=== PATIENT | female | born 1975 ===

== ENCOUNTER 2020-02-03 07:00 | Outpatient (RCR) | payer OTHER, SELFPAY ==
--- NOTE | 2020-02-02 13:42 | HO.PHPPROGNO ---
Subjective Subjective Date of Service: 02/02/20 Reason For Visit: F31.4 Interim History: Sravanthi is preparing for discharge this week. She has been trialing cyproheptadine for insomnia and it is helpful with nightmares, however she is still experiencing a.m. drowsiness. Discussed half-life (brief) but allowing herself enough time to metabolize along with the mixing with Diazepam and Sonata. She will do a 12 hour trial this evening to assess for symptom decrease. Medication Compliance: Yes Side effects from medications: Yes (morning sedation) Attending Groups: Yes Mental Status Exam Mental Status Exam Narrative: Telehealth Level of Consciousness: Awake, Appropriate and Alert Patient Behavior: Appropriate and Cooperative Mood Description: Calm and Appropriate Affect Description: Flat Patient Cognition Impaired: No Ability to Follow Directions: Excellent Speech Pattern: Clear, Normal for Patient, Appropriate, Spontaneous Speech and Soft-Spoken Memory Description: Intact Hallucinations: None Delusions: Not Present Thought Process: Intact and Goal Oriented Thought Content: Intact and Goal Oriented Depressive Symptoms: Insomnia (meds are effective with SE) Judgement: Good Judgement and Insight: Intact Assessment & Plan Patient educated on: medication risk/benefits and therapeutic strategies Informed Consent: understands Reason for contiued partial hosp. stay Substantial Risk for: inability to function, rapid decompensation and med/psych decompensation Certification I certify that partial hospital treatment is medically necessary due to the symptoms and problems resulting from the patient's mental illness and the failure to treat the patient at the partial hospital level of care would likely result in the patient requiring inpatient psychiatric care which could not be prevented at a less intensive level of care. Greater than 50% of the session was spent on counseling and/or coordination of care Discharge Plan Discharge Attending provider: Dexter Stout
--- NOTE | 2020-02-07 11:01 | PC.NURSE ---
Unable to get a hold of patients PCP's office until today. Spoke to Loren GRADY to notify her that patients BP readings that patient has been taking with BP wrist cuff have been high according to patient and patient stated that providers have been having difficulty regulating it. Pt reports SBP running in the 160's 170's and 180's and DBP 120's, 110's. Patient did report a H/A one of the days not other symptoms. Pt reports that she has been taking her medications as prescribed. Request to review with Dr Cespedes the need for patient to be referred to a [employer] and Loren GRADY agreed. 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
== END 2020-02-03 23:55 | disposition home or self-care (01) ==
LOC: HO.PHPA 07:00
PROVIDERS: Visit Provider Psychiatry & Neurology Psychiatry
DX: F31.30 Bipolar disorder, current episode depressed, mild or moderate severity, unspecified (principal); F43.10 Post-traumatic stress disorder, unspecified; F10.20 Alcohol dependence, uncomplicated
CPT/HCPCS: 90853; 99213